=== PATIENT | male | born 1965 | race American Indian/Alaskan Native ===

== ENCOUNTER 2021-03-03 07:30 | Outpatient (CLI) | payer BC ==
--- NOTE | 2021-03-03 08:59 | Cat Scan Report ---
CT ABDOMEN AND PELVIS WITHOUT CONTRAST HISTORY: MALIGNANT NEOPLASM OF PROSTATE COMPARISON: None TECHNIQUE: Routine abdominal and pelvic CT exam performed without contrast. Lack of intravenous cont rast limits evaluation of the vascular and solid organs.. All CT scans at this location are performed using CT dose reduction for ALARA by means of automated exposure control. FINDINGS: CT ABDOMEN: Lung Bases: There are some tiny subpleural 3 to 4 mm nodules in both lower lobes. Liver: No significant abnormality. Biliary: No significant abnormality. Spleen: No significant abnormality. Unenlarged. Pancreas: No significant abnormality. Adrenals: No significant abnormality. Kidneys: No significant abnormality. Lymphatics: No lymphadenopathy. Vasculature: No significant abnormality. Bowel/Peritoneum: Nonobstructive bowel pattern. Diverticulosis without mesocolonic fat stranding. No free air. No free fluid. CT PELVIC: : No significant abnormality. Lymphatics: No lymphadenopathy. Osseous Structures: No aggressive appearing osseous lesions. Additional Findings: None IMPRESSION: 1. No definite evidence of metastatic disease in the abdomen or pelvis. 2. Tiny bilateral lower lobe subpleural nodules are most likely benign and can be followed on subsequ ent surveillance exams. Signer Name: Sandip Freire MD Signed: 03/03/2021 8:54 AM Workstation Name: [id number]
--- NOTE | 2021-03-03 13:54 | Nuclear Medicine Report ---
NUCLEAR MEDICINE BONE SCAN, WHOLE BODY INDICATION: MALIGNANT NEOPLASM OF PROSTATE. TECHNIQUE: 26.5 mCi of Tc-99m MDP were injected IV. Whole body images were obtained. COMPARISON: CT abdomen and pelvis performed earlier today. FINDINGS: Skeletal Structures: Fairly symmetric, likely degenerative uptake is present involving the shoulders , thoracic spine, knees and left ankle. Skeletal Lesions: None. Soft Tissues: Normal. Kidneys: Normal, symmetric activity. Additional Findings: None. IMPRESSION: Degenerative findings as described. No evidence for osseous metastatic disease. Signer Name: Gary Amin Jr, MD Signed: 03/03/2021 1:49 PM Workstation Name: [id number]
== END 2021-03-03 07:31 | disposition home or self-care (01) ==
LOC: NM 07:30
PROVIDERS: ATTEND Urology
DX: C61 Malignant neoplasm of prostate (principal); K57.30 Diverticulosis of large intestine without perforation or abscess without bleeding; R91.1 Solitary pulmonary nodule
CPT/HCPCS: 74176; 78306; A9503